=== PATIENT | male | born 1980 | race Caucasian/White ===

== ENCOUNTER 2019-07-31 17:30 | Emergency (ER) | payer BC ==
[~2019-07-31] VITALS: Ht 190.5 cm; Wt 127.0 kg
[2019-07-31 17:47] VITALS: BP_SYST 135
[2019-07-31] MEDS ORDERED: LIDOCAINE 1% 10 MG/ML, 20 ML MDV INJ ONE (18:30)
[2019-07-31 18:47] VITALS: BP_SYST 135
== END 2019-07-31 18:47 | disposition home or self-care (01) ==
LOC: SED 17:30
DX: K64.9 Unspecified hemorrhoids (principal); C73 Malignant neoplasm of thyroid gland; Z85.850 Personal history of malignant neoplasm of thyroid
CPT/HCPCS: 99284; J2001; 99283